=== PATIENT | male | born 2000 | race Caucasian/White ===

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

== ENCOUNTER 2020-01-23 06:19 | Emergency (ER) | payer MEDICAID, SELFPAY ==
[~2020-01-23] VITALS: Ht 180.3 cm; Wt 99.8 kg
[2020-01-23 06:21] VITALS: Ht 180.3 cm; Wt 99.8 kg
[2020-01-23 07:09] VITALS: BP 109/70
== END 2020-01-23 07:09 | disposition home or self-care (01) ==
LOC: ED 06:19
DX: R51 Headache (principal); M79.10 Myalgia, unspecified site; R53.83 Other fatigue; R50.9 Fever, unspecified; Z20.828 Contact with and (suspected) exposure to other viral communicable diseases
CPT/HCPCS: U0003-CS

== ENCOUNTER 2020-05-29 06:50 | Emergency (ER) | payer MEDICAID, SELFPAY ==
[~2020-05-29] VITALS: Ht 154.9 cm; Wt 128.4 kg
[2020-05-29 06:52] VITALS: BP 112/50; Ht 154.9 cm; Wt 128.4 kg
== END 2020-05-29 07:54 | disposition home or self-care (01) ==
LOC: ED 06:50
DX: J02.9 Acute pharyngitis, unspecified (principal); Z20.828 Contact with and (suspected) exposure to other viral communicable diseases
CPT/HCPCS: U0003